=== PATIENT | female | born 2000 | race Two or more races ===

== ENCOUNTER 2024-09-15 16:39 | Outpatient (CLI) | payer OTHER ==
[~2024-09-15] VITALS: Ht 175.3 cm; Wt 126.1 kg
[2024-09-15 17:11] VITALS: BP 118/78; O2SAT 99
[2024-09-15 18:43] LABS: HEMATOCRIT 32.3 % (36.0-45.00); HEMOGLOBIN 10.5 g/dL (12.0-15.00); MEAN CELL VOLUME 81.1 fL (80.00-100.00); MEAN CORPUSCULAR HEMOGLOBIN 26.3 pg (27.00-32.0); MEAN CORPUSCULAR HGB CONC 32.5 g/dl (32.0-36.0); PLATELET COUNT 230 K/uL (150-450); RED BLOOD COUNT 3.99 M/uL (4.00-6.00); RED CELL DISTRIBUTION WIDTH 13.9 % (11.5-14.5); URINE APPEARANCE Clear; URINE BILIRRUBIN Negative (NEGATIVE); URINE BLOOD Negative; URINE COLOR Yellow; URINE GLUCOSE Negative (NEGATIVE); URINE KETONE Negative (NEGATIVE); URINE LEUKOCYTE Small; URINE NITRATE Negative; URINE PROTEIN Negative (NEGATIVE); URINE UROBILINOGEN 0.2 E.U./dl
[2024-09-15 18:47] LABS: URINE BACTERIA 1448.9 uL (0.0-1933); URINE EPITHELIAL CELLS 12.3 uL (0.0-38.8); URINE RBC 3.5 uL (0.0-20.8); URINE WBC 14.6 uL (0.0-23.2)
[2024-09-15 19:09] LABS: ALBUMIN 2.9 gm/dL (3.4-5.0); BILIRUBIN TOTAL 0.16 mg/dL (0.3-1.2); CALCIUM 9.1 mg/dL (8.5-10.1); CREATININE SERUM 0.55 mg/dL (0.55-1.02); GFR 136.97; GLOBULINA 3.5 G/DL (2.4-3.5); POTASSIUM 4.41 mEq/L (3.5-5.1); TOTAL PROTEIN 6.4 gm/dL (6.4-8.2)
[2024-09-15 19:16] LABS: INR 0.97; PROTHROMBIN TIME 10.6 SECONDS (9.0-11.5)
[2024-09-15] MEDS ORDERED: PRENATAL TABLE1 EAC1 PO (19:40)
[2024-09-15] MEDS ORDERED: CHILDREN'S ASPI81 MG PO (19:40)
[2024-09-15] MEDS ORDERED: IRON325 MG PO (19:40)
[2024-09-15 20:50] VITALS: BP 100/62
[2024-09-15] MEDS ORDERED: RINGERS SOLUTION,LACTATED 1,000 ML IV SCH (23:00)
[2024-09-15 23:44] VITALS: BP 121/68
[2024-09-16 03:25] VITALS: BP 133/69
[2024-09-16 06:23] VITALS: BP 118/75; O2SAT 99
[2024-09-16] MEDS ORDERED: ASPIRIN 81 MG TAB.CHEW PO SCH (09:00)
[2024-09-16] MEDS ORDERED: PNV,CALCIUM 72/IRON/FOLIC ACID 1 TAB TABLET PO SCH (09:00)
[2024-09-16 14:31] VITALS: BP 112/73
[2024-09-16 15:27] VITALS: BP 123/79
[2024-09-16 18:25] LABS: CREATININE URINE 18.9 MG/DL
[2024-09-16 18:30] LABS: CREATININE SERUM 0.64 mg/dL (0.6-1.0)
[2024-09-16 18:32] LABS: CREATINE CLEARANCE 90.4 ML/MIN (97-137)
[2024-09-16 18:44] VITALS: BP 120/76
[2024-09-16 19:09] VITALS: BP 120/76
== END 2024-09-17 07:47 | disposition home or self-care (01) ==
LOC: OBS/DEL 16:39
PROVIDERS: ATTEND Specialist
DX: O13.3 Gestational [pregnancy-induced] hypertension without significant proteinuria, third trimester (principal); O16.3 Unspecified maternal hypertension, third trimester; Z3A.30 30 weeks gestation of pregnancy; O36.8193 Decreased fetal movements, unspecified trimester, fetus 3; O26.843 Uterine size-date discrepancy, third trimester

== ENCOUNTER 2024-11-01 08:08 | Outpatient (CLI) | payer OTHER ==
[~2024-11-01] VITALS: Ht 175.3 cm; Wt 127.0 kg
[~2024-11-01 08:08] MED LIST: CHILDREN'S ASPI81 MG PO; IRON325 MG PO; PRENATAL TABLE1 EAC1 PO
[2024-11-01 08:37] VITALS: BP 115/70
[2024-11-01 10:29] VITALS: BP 108/68
[2024-11-01 15:27] VITALS: BP 110/75
[2024-11-01 16:40] VITALS: BP 110/75
== END 2024-11-01 16:42 | disposition home or self-care (01) ==
LOC: OBS/DEL 08:08
PROVIDERS: ATTEND Specialist
DX: O26.893 Other specified pregnancy related conditions, third trimester (principal); O26.849 Uterine size-date discrepancy, unspecified trimester; O36.8199 Decreased fetal movements, unspecified trimester, other fetus; O10.019 Pre-existing essential hypertension complicating pregnancy, unspecified trimester; Z3A.37 37 weeks gestation of pregnancy

== ENCOUNTER 2024-11-22 04:12 | Inpatient (IN) | payer OTHER ==
[~2024-11-22] VITALS: Ht 175.3 cm; Wt 127.9 kg
[2024-11-22] VITALS (9 sets, daily range): BP systolic 107–167; BP diastolic 66–90
[2024-11-22 06:18] LABS: HEMATOCRIT 34.6 % (36.0-45.00); HEMOGLOBIN 11.7 g/dL (12.0-15.00); MEAN CELL VOLUME 80.3 fL (80.00-100.00); MEAN CORPUSCULAR HEMOGLOBIN 27.2 pg (27.00-32.0); MEAN CORPUSCULAR HGB CONC 33.9 g/dl (32.0-36.0); PLATELET COUNT 192 K/uL (150-450); RED BLOOD COUNT 4.31 M/uL (4.00-6.00); RED CELL DISTRIBUTION WIDTH 15.9 % (11.5-14.5)
[2024-11-22 06:34] LABS: INR < 0.93; PARTIAL THROMBOPLASTIN TIME 26.6 SECONDS (22.0-34.0); PROTHROMBIN TIME 10.2 SECONDS (9.0-11.5)
[2024-11-22 06:45] LABS: ALBUMIN 2.7 gm/dL (3.4-5.0); BILIRUBIN TOTAL 0.2 mg/dL (0.3-1.2); CALCIUM 8.9 mg/dL (8.5-10.1); CREATININE SERUM 0.6 mg/dL (0.55-1.02); GFR 122.82; GLOBULINA 3.6 G/DL (2.4-3.5); POTASSIUM 4.18 mEq/L (3.5-5.1); TOTAL PROTEIN 6.3 gm/dL (6.4-8.2)
[2024-11-22 07:21] LABS: URINE BACTERIA 5926.3 uL (0.0-1933); URINE EPITHELIAL CELLS 54.3 uL (0.0-38.8); URINE RBC 12.2 uL (0.0-20.8)
[2024-11-22 08:10] LABS: URINE BILIRRUBIN SMALL (NEGATIVE); URINE BLOOD NEGATIVE; URINE GLUCOSE NEGATIVE (NEGATIVE); URINE KETONE NEGATIVE (NEGATIVE); URINE LEUKOCYTE MODERATE; URINE NITRATE NEGATIVE; URINE PROTEIN NEGATIVE (NEGATIVE)
[2024-11-22 08:14] LABS: URINE APPEARANCE CLEAR; URINE COLOR YELLOW
[2024-11-22 08:15] LABS: URINE CAST 0.44 uL (0.0-1.40)
[2024-11-22 08:24] LABS: URINE YEAST MANY /hpf
[2024-11-22] MEDS ORDERED: OXYTOCIN 20 UNITS/500ML RL PIGGYBAG IV ONE (08:33)
[2024-11-22] MEDS ORDERED: OXYTOCIN 500 ML IV SCH (08:40)
[2024-11-22] MEDS ORDERED: PROMETHAZINE HCL 25 MG/ML AMPUL ONE (09:43)
[2024-11-22] MEDS ORDERED: PROMETHAZINE HCL 25 MG/ML AMPUL IV ONE (10:00)
[2024-11-22] MEDS ORDERED: MEPERIDINE HCL/PF 50 MG/ML VIAL IV ONE (10:00)
[2024-11-22] MEDS ORDERED: ERYTHROMYCIN BASE OPHT 1GM EACH TUBE OP ONE ×2 (10:54→16:30)
[2024-11-22] MEDS ORDERED: OXYTOCIN 20 UNITS/1000ML RL PIGGYBAG IV ONE (10:54)
[2024-11-22] MEDS ORDERED: LIDOCAINE HCL 1% 10ML VIAL ONE (10:54)
[2024-11-22] MEDS ORDERED: CHLORHEXIDINE GLUCONATE 120 ML BOTTLE TOP ONE ×2 (10:54→16:30)
[2024-11-22] MEDS ORDERED: CEFAZOLIN SODIUM 1,000 MG VIAL IV SCH (11:00)
[2024-11-22] MEDS ORDERED: CARBOPROST TROMETHAMINE 250 MCG/ML AMPUL IM ONE (15:26)
[2024-11-22] MEDS ORDERED: CARBOPROST TROMETHAMINE 250 MCG/ML AMPUL IM STA (16:25)
[2024-11-22] MEDS ORDERED: OXYTOCIN 1,000 ML IV SCH (16:30)
[2024-11-22] MEDS ORDERED: LIDOCAINE HCL 1% 10ML VIAL PERCUT ONE (16:30)
[2024-11-22] MEDS ORDERED: IBUprofen 600 MG TABLET PO SCH (20:00)
[2024-11-23 01:00] VITALS: BP 114/76
[2024-11-23 08:07] VITALS: BP 116/72
[2024-11-23] MEDS ORDERED: FF) RHO(D) IMMUNE GLOBULIN (POM) IM ONE (11:15)
[2024-11-23 16:25] VITALS: BP 121/75
[2024-11-24 00:05] VITALS: BP 114/73
[2024-11-24 07:56] VITALS: BP 125/71
== END 2024-11-24 16:19 | disposition home or self-care (01) | DRG 807 ==
LOC: OB/GYN 04:12 → LDR 04:12 → OB/GYN 16:46
PROVIDERS: ADMIT Specialist; ATTEND Specialist
PROC: 10E0XZZ Delivery of Products of Conception, External Approach (ICD-10-PCS; principal; 2024-11-22)
PROC: 0KQM0ZZ Repair Perineum Muscle, Open Approach (ICD-10-PCS; 2024-11-22)
PROC: 4A1HXCZ Monitoring of Products of Conception, Cardiac Rate, External Approach (ICD-10-PCS; 2024-11-22)
DX: O70.1 Second degree perineal laceration during delivery (principal); Z37.0 Single live birth; Z3A.39 39 weeks gestation of pregnancy; Z20.822 Contact with and (suspected) exposure to COVID-19